=== PATIENT | male | born 1970 | race Native Hawaiian/Other Pacific Islander ===

== ENCOUNTER 2025-05-01 17:05 | Emergency (ER) | payer OTHER ==
[~2025-05-01] VITALS: Ht 170.2 cm; Wt 119.0 kg
[~2025-05-01 17:05] MED LIST: BACTRIM DS TAB1 EACH PO; FLOMAX0.4 MG PO; LISINOPRIL10 MG PO; NORCO 5-325 TA1 EACH PO; ONDANSETRON ODT8 MG PO; PERCOCET 5-3251 EACH PO; PROBENECID-COL1 EACH PO; PROPRANOLOL HCL40 MG PO; TRAMADOL HCL50 MG PO; ZOFRAN ODT8 MG PO; ZOLPIDEM TARTRA10 MG PO
[2025-05-01] MEDS ORDERED: LISINOPRIL-HCT1 EACH PO (17:53)
[2025-05-01 19:41] VITALS: BP 150/87
== END 2025-05-01 19:42 | disposition home or self-care (01) ==
LOC: ED 17:05
DX: M25.552 Pain in left hip (principal); I10 Essential (primary) hypertension; Z88.8 Allergy status to other drugs, medicaments and biological substances; W18.31XA Fall on same level due to stepping on an object, initial encounter
CPT/HCPCS: 73502; 99283